=== PATIENT | male | born 1965 | race Two or more races ===

== ENCOUNTER 2017-08-17 09:59 | Emergency (ER) | payer OTHER ==
--- NOTE | 2017-08-17 10:17 | EDPHY ---
H & P Time Seen by Provider: 08/17/17 10:08 HPI/ROS: 52-year-old male presents complaining of left-sided headache of approximately 24 hours duration, markedly improved over the last 30-60 minutes. Patient states he normally has right-sided headaches and usually takes Excedrin migraine with relief and/or visits his chiropractor for both massaged No neck pain, no nausea no vomiting no fevers no chills. Patient took 4 Advil prior to arrival and states his pain is now a 3/10 Review of systems As per HPI General no fever no chills no weakness HEENT no eye pain no eye discharge. No eye redness, no sore throat Respiratory no cough, no shortness of breath Cardiac no chest pain, no peripheral edema GI no abdominal pain, no diarrhea, no constipation, no nausea, no vomiting no flank pain, no hematuria, no dysuria Musculoskeletal no myalgias, no joint pain Heme no easy bruising, no easy bleeding Endo no polyuria, no polydipsia Skin no rashes, no pruritus Neuro no syncope, no dizziness, positive headaches Psych is no suicidal ideation, no homicidal ideation Past Medical/Surgical History: Hypothyroidism Social History: Alcohol socially, no drug use Smoking Status: Never smoked Physical Exam: 52-year-old male alert and oriented no acute distress nontoxic appearance afebrile HEENT atraumatic normocephalic, extraocular muscles intact, anicteric Oropharynx negative for erythema negative exudate, tolerating her own secretions Neck supple no meningismus Lungs clear to auscultation bilaterally Heart regular rate and rhythm without murmur rub or gallop Abdomen nondistended normoactive bowel sounds soft nontender Back no CVA tenderness, no step-offs, no spinal tenderness Extremities no cyanosis clubbing or edema Neuro alert and oriented, no focal deficits Constitutional: Initial Vital Signs Temperature (C) 37 C 08/17/17 10:07 Heart Rate 80 08/17/17 10:07 Respiratory Rate 16 08/17/17 10:07 Blood Pressure 132/87 H 08/17/17 10:07 O2 Sat (%) 98 08/17/17 10:07 O2 Delivery Mode Room Air Allergies/Adverse Reactions: Penicillins Allergy (Verified 08/17/17 10:14) Home Medications: Medication Instructions Recorded Levothyroxine 75 mcg 08/17/17 Medical Decision Making - Diagnostics Imaging Results: Imaging Impressions Head CT 08/17/17 10:31 Impression: Normal. Results called and discussed with Kristen Jim MD at 08/17/2017 11:03. ED Course/Re-evaluation: Patient seen and evaluated for headache, currently resolved. No associated symptoms, no findings on physical exam. CT brain negative Impression Generalized headache, possibly tension headache Plan Follow up with primary care physician Return if worsening. Differential Diagnosis: Migraine headache, cluster headache, tension headache, brain tumor, subdural, epidural Departure - Departure Disposition: Home, Routine, Self-Care Clinical Impression: Headache Condition: Good Instructions: General Headache (ED) Additional Instructions: Please follow up with your primary to discuss your headaches. Referrals: HOSSEIN THURMAN [Primary Care Provider] - As per Instructions
[2017-08-17 10:42] VITALS: RESP 16; TEMP 98.6
[2017-08-17 11:23] VITALS: BP 125/86; PULSE 70; O2SAT 96
== END 2017-08-17 11:22 | disposition home or self-care (01) ==
LOC: CED 09:59
DX: R51 Headache (principal)
CPT/HCPCS: 70450-PO